=== PATIENT | female | born 1980 | race Caucasian/White ===

== ENCOUNTER 2019-01-17 09:16 | Emergency (ER) | payer BC ==
[~2019-01-17] VITALS: Ht 167.6 cm; Wt 60.0 kg
[2019-01-17 10:10] LABS: BASOPHILS % 0.5 % (0.0-2.0); EOSINOPHILS % 1.1 % (0.0-5.0); HEMATOCRIT. 39.9 % (36.0-48.0); HEMOGLOBIN. 13.6 g/dL (12.0-16.0); LYMPHOCYTES % 15.9 % (20.0-50.0); MEAN CORPUSCULAR HEMOGLOBIN 31.8 pg (28.0-32.0); MEAN CORPUSCULAR VOLUME 93.2 fL (81.0-99.0); MEAN PLATELET VOLUME 8.4 fl (7.4-10.4); MONOCYTES % 4.4 % (2.0-8.0); NEUTROPHILS % 78.1 % (40.0-76.0); PLATELET 239 x1000/uL (130-400); RED BLOOD CELL COUNT 4.28 mill/uL (4.2-5.4); RED CELL DISTRIBUTION WIDTH 13.1 % (11.6-14.6)
[2019-01-17 10:17] LABS: CHLORIDE 109 mEq/L (98-107)
[2019-01-17 10:26] LABS: T4 FREE 1.04 ng/dL (0.76-1.46)
[2019-01-17] MEDS ORDERED: SODIUM CHLORIDE 0.9% 1,000 ML IV ONE (11:15)
[2019-01-17 13:47] LABS: HCG SCREEN NEGATIVE
[2019-01-17 15:44] VITALS: BP 102/52
== END 2019-01-17 16:00 | disposition home or self-care (01) ==
LOC: ER 09:25
DX: R07.89 Other chest pain (principal); R42 Dizziness and giddiness
CPT/HCPCS: 36415; 71045; 80053; 83880; 84439; 84443; 84481; 84484; 84703; 85025; 85379; 93005; 96360; 99284; J7030; Z7610